=== PATIENT | male | born 1970 | race Caucasian/White ===

== ENCOUNTER → 2020-09-22 | Outpatient (CLI) | payer MEDICARE | LOC: HEART 5 14:31 | DX: J45.20 Mild intermittent asthma, uncomplicated (principal) | CPT/HCPCS: 94010 ==

== ENCOUNTER → 2020-10-05 | Outpatient (CLI) | payer MEDICARE | LOC: KOH-I 14:26 | DX: J47.9 Bronchiectasis, uncomplicated (principal) | CPT/HCPCS: 71250 ==